=== PATIENT | female | born 1985 | race Caucasian/White ===

== ENCOUNTER 2017-12-12 07:29 | Outpatient (CLI) | payer OTHER ==
--- NOTE | 2017-12-12 09:41 | ULT ---
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 ICD-10: D48.1 and C64.9. FINDINGS: There is no evidence of any moderate size or large solid or cystic renal mass. Right Kidney: 13 x 5 x 4.5 cm. Left Kidney: 12 x 6 x 5.5 cm. There is no hydronephrosis bilaterally. Urinary bladder has volume of 65 mL at the time of this study. Margins appear irregular, but that cou ld be due to incomplete distention. Evaluation of the urinary bladder is incomplete. IMPRESSION: No renal neoplasm identified. WENDIE Lamar POS: SUNI
== END 2017-12-12 07:30 | disposition home or self-care (01) ==
LOC: ULT 07:29
PROVIDERS: ATTEND Obstetrics & Gynecology
DX: D48.1 Neoplasm of uncertain behavior of connective and other soft tissue (principal)
CPT/HCPCS: 76770